=== PATIENT | male | born 1935 | race Caucasian/White ===

== ENCOUNTER 2024-06-21 13:12 | Outpatient (CLI) | payer MEDICARE, BC | END 2024-06-21 23:59 | disposition home or self-care (01) | LOC: RAD 13:12 | PROVIDERS: ATTEND Physician Assistant Surgical | DX: M51.360 Other intervertebral disc degeneration, lumbar region with discogenic back pain only (principal); M47.816 Spondylosis without myelopathy or radiculopathy, lumbar region; M48.061 Spinal stenosis, lumbar region without neurogenic claudication; M46.1 Sacroiliitis, not elsewhere classified | CPT/HCPCS: 72131 ==

== ENCOUNTER 2024-12-05 14:40 | Emergency (ER) | payer MEDICARE, BC ==
[~2024-12-05] VITALS: Ht 170.2 cm; Wt 80.3 kg
[2024-12-05 14:41] VITALS: BP 163/90; PULSE 85; TEMP 98.4; O2SAT 96
--- NOTE | 2024-12-05 15:40 | Physician Documentation ---
History of Present Illness ~ Chief Complaint: Back Pain Stated Complaint: BACK PAIN Time Seen by MD: 15:16 Primary Medical Doctor: Harris Source: patient Mode of Arrival: POV Exam Limitations: no limitations HPI Patient with no significant past medical history presents secondary to mid back pain described as sharp in the left mid back for the past three weeks. He complains of intermittent numbness down his left arm. He was seen at [facility] on November 20, 2024 with similar complaints. He underwent a full workup that included CT scan. He then went to his primary proofsheet corrector who provided a full cardiac workup including a stress test. Asked about results he states she said she will see me in January. No chest pain or pressure. No shortness a breath. No dizziness, lightheadedness or syncope. Has been taking ibuprofen, lidocaine patches with no relief of symptoms. He saw his primary care provider who gave him Norflex 2 mg which he states has provided no improvement. Medication Reconciliation Allergies: Coded Allergies: Sulfa (Sulfonamide Antibiotics) (Verified Allergy, Unknown, 12/05/24) morphine (Verified Allergy, Unknown, 12/05/24) Past Medical History Past Medical History: Hypertension Past Surgical History: no surgical history Drug Use: none Lives with: Spouse Lives In: Home Occupation: retired Review of Systems ROS Mid back pain as described in HPI. Of intermittent numbness to his left biceps area. Otherwise, review of systems is negative. Physical Exam Physical Exam Vital Signs: RN Vital Signs have been reviewed: Yes, Temperature: 98.4, Source: Temporal, Heart Rate: 85, Respiratory Rate: 18, BP: 163/90, Pulse Oximetry: 96, Weight: 80.300 Oxygen Flow Rate: 0 Pulse Oximetry Reflects: adequate oxygenation Physical Exam General: Awake, alert, oriented. No apparent distress Neck: Supple. Normal range of motion. No JVD Respiratory: Lungs are clear to auscultation bilaterally. No respiratory distress. Chest: Normal shape and size. No accessory muscle use. Cardiovascular: Regular rate and rhythm. S1-S2. No murmur, gallop, rub. Gastrointestinal: Abdomen is soft. Nontender to palpation. Bowel sounds present. Back: There is pain with palpation to the left mid back. Obvious deformity or step-off. No rashes. Neurologic: Alert and oriented x4. Nonfocal Psychiatric: Normal mood and affect. Skin: Normal color. Warm and dry. Procedures Trigger Point Injection Injected: lidocaine Amount Injected: 3 Ml Needle Size: 27 Patient Relief: moderate Tolerated Procedure Well?: yes, no complications Procedure Note Verbal consent was obtained site for trigger point injections was marked. Skin cleansed with alcohol swabs. 1% lidocaine was used on three different trigger points to the left mid back in the scapular region left of the spinous processes. Patient tolerated well. Progress Results/Orders Results/Orders Completed Orders - RADHA CUEVAS NP Ketorolac Trometh 15mg/Ml Vial (Toradol (12/05/24 15:35) Medications Received in ER Medications (Trade) Dose Ordered Sig/Vikas Route PRN Reason Start Time Stop Time Status Last Admin Dose Admin (Toradol injection) 15 mg ONCE ONCE IM 12/05/24 15:35 12/05/24 15:36 DC 12/05/24 16:18 15 MG Vital Signs 12/05/24 12/05/24 14:41 16:18 Temp 98.4 Pulse 85 Resp 18 16 B/P (MAP) 163/90 Pulse Ox 96 O2 Flow Rate 0 Medical Decision Making Findings Patient presents with a three-week history of mid back pain. He was seen at [facility] for the same. He brought in medical records. This included a CT scan of his thoracic spine which showed no acute bony abnormalit ies of the thoracic spine. 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 CT scan of his cervical spine which showed no acute fracture or dislocation. Multilevel cervical spondylosis without severe bony spinal canal stenosis at any level. There are multiple neural foraminal stenosis from C3 to C7. This is an otherwise healthy, well appearing patient presenting with back pain. Patients does not have any high-risk features on history Trauma, IVDA, cancer, significant weight loss or history of TB, and the patient has a normal neurologic exam without fever, severe or progressive neurologic deficits; therefore, imaging was not indicated in the ED. I doubt spinal fracture, epidural hematoma, epidural abscess, unstable spinal pathology, emergent renal or aortic pathology, or spinal cord compression. Upon discharge, the patients pain was controlled, and the patient was ambulatory without a risk of falling. Was given Toradol for his pain and given trigger point injections as described in the procedure section of this document. He tolerated well. Reported relief from pain. Return precautions were discussed including worsening pain, new/worsening weakness/numbness, difficulty urinating, or incontinence. Patient is aware that the purpose of this visit was to screen for an acute medical emergency requiring emergent stabilization. Chronic conditions, including malignancies, have not been ruled out. Patient is instructed to f ollow-up with a PCP and/or orthopedic surgeon as directed in discharge instructions for continued care and work-up. If unable to arrange follow-up, patient is instructed to return to the ED for reassessment. Patient was given verbal and written discharge instructions and acknowledges understanding Departure Time of Disposition: 16:49 Disposition: 01 HOME / SELF CARE / HOMELESS Impression: Primary Impression: Back pain Qualified Codes: M54.6 - Pain in thoracic spine Discharge Instructions: Back Exercises, Trigger Point Injection Additional Instructions: Take ibuprofen for the next 12 hours after using Toradol shot that you were given here in the emergency department. Recommend gentle stretches. Continue to follow up with your primary care provider. Return for new or worsening symptoms. Given trigger point injections today with lidocaine. Referrals: NO PRIMARY CARE PROVIDER (PCP) Education Educated: Patient Educated regarding: diagnosis, treatment, need for follow up Signature Scribe Signature: no scribe Attestation: The note accurately reflects work and decisions made by me.Radha Cuevas - YOMAIRA 12/05/24 17:51 This note was created with the assistance of voice recognition software whereby errors in grammar, syntax, and/or spelling may have occurred despite active proofreading efforts by the author. Please do not hesitate to contact the provider for clarification or for questions regarding the content of this document. RADHA CUEVAS NP Dec 05, 2024 15:40
[2024-12-05 16:18] VITALS: RESP 16
[2024-12-05] MEDS: ketorolac trometh 15mg/ml vial 15 MG/ML ML IM ONE (16:18)
== END 2024-12-05 17:23 | disposition home or self-care (01) ==
LOC: ER 14:40
DX: M54.6 Pain in thoracic spine (principal); M79.10 Myalgia, unspecified site; I10 Essential (primary) hypertension; Z88.2 Allergy status to sulfonamides; Z88.5 Allergy status to narcotic agent
CPT/HCPCS: 20552; 96372; 99284; J1885; 99283